=== PATIENT | female | born 1980 | race Caucasian/White ===

== ENCOUNTER → 2020-01-26 15:21 | Outpatient (BNVA) | payer OTHER, SELFPAY | PROVIDERS: Family Provider Nurse Practitioner Family; PCP Nurse Practitioner; Referring Provider Nurse Practitioner Family; Visit Provider Nurse Practitioner Family | DX: R68.89 Other general symptoms and signs (principal); Z20.828 Contact with and (suspected) exposure to other viral communicable diseases; B34.9 Viral infection, unspecified | CPT/HCPCS: 87400; 87635 ==

== ENCOUNTER → 2020-05-11 11:27 | Outpatient (BNVA) | payer OTHER, SELFPAY | PROVIDERS: Family Provider Nurse Practitioner Family; PCP Nurse Practitioner; Visit Provider Nurse Practitioner Family | DX: Z11.59 Encounter for screening for other viral diseases (principal) | CPT/HCPCS: 87635 ==

== ENCOUNTER → 2024-03-25 11:36 | Outpatient (BNVA) | payer OTHER, SELFPAY | PROVIDERS: Family Provider Nurse Practitioner Family; PCP Nurse Practitioner Family; Visit Provider Nurse Practitioner Family | DX: F31.9 Bipolar disorder, unspecified (principal); K21.9 Gastro-esophageal reflux disease without esophagitis; Z79.899 Other long term (current) drug therapy; Z13.6 Encounter for screening for cardiovascular disorders; Z12.31 Encounter for screening mammogram for malignant neoplasm of breast; Z30.41 Encounter for surveillance of contraceptive pills | CPT/HCPCS: 80053; 80061; 81003; 83036; 84439; 84443; 85025; 86376; 87077; 87086; 87184 ==

== ENCOUNTER → 2024-04-25 10:46 | Outpatient (BNVA) | payer OTHER, SELFPAY | PROVIDERS: Family Provider Nurse Practitioner Family; PCP Nurse Practitioner Family; Visit Provider Nurse Practitioner Family | DX: F31.9 Bipolar disorder, unspecified (principal); Z87.440 Personal history of urinary (tract) infections | CPT/HCPCS: 81003 ==

== ENCOUNTER → 2024-05-27 16:41 | Outpatient (BNVA) | payer SELFPAY | PROVIDERS: Family Provider Nurse Practitioner Family; PCP Nurse Practitioner Family; Visit Provider Nurse Practitioner Family | DX: Z12.4 Encounter for screening for malignant neoplasm of cervix (principal) | CPT/HCPCS: 88175 ==

== ENCOUNTER 2024-06-04 10:22 | Outpatient (CLI) | payer MEDICAID, SELFPAY ==
--- NOTE | 2024-06-04 10:40 | MM_ITS ---
WS: [id number] BILATERAL SCREENING DIGITAL TOMOSYNTHESIS MAMMOGRAM WITH CAD HISTORY: SCREENING COMPARISON: None available. Bilateral CC and MLO views with tomosynthesis and synthetic mammography submitted. Computer aided det ection analyzed. Breast composition: There are scattered areas of fibroglandular density. No suspicious masses, microc alcifications or architectural distortion. MM/[place] [id number] IMPRESSION: BI-RADS: 1-Negative FOLLOW UP: 1 Year Follow-up
== END 2024-06-04 10:23 | disposition home or self-care (01) ==
LOC: MOBLMAM 10:33
PROVIDERS: PCP Nurse Practitioner Family; Visit Provider Nurse Practitioner Family
DX: Z12.2 Encounter for screening for malignant neoplasm of respiratory organs (principal)
CPT/HCPCS: 77063; 77067; 87070; 87205

== ENCOUNTER → 2024-06-16 09:22 | Outpatient (BNVA) | payer MEDICAID, SELFPAY | PROVIDERS: PCP Nurse Practitioner Family; Visit Provider Nurse Practitioner Family | DX: G25.81 Restless legs syndrome (principal) | CPT/HCPCS: 82728; 83550 ==

== ENCOUNTER → 2024-07-07 11:38 | Outpatient (BNVA) | payer MEDICAID, SELFPAY | PROVIDERS: PCP Nurse Practitioner Family; Visit Provider Nurse Practitioner Family | DX: R35.0 Frequency of micturition (principal); R05.9 Cough, unspecified | CPT/HCPCS: 81015; 87426 ==

== ENCOUNTER → 2024-10-01 16:10 | Outpatient (BNVA) | payer MEDICAID, SELFPAY | PROVIDERS: PCP Nurse Practitioner Family; Visit Provider Nurse Practitioner Family | DX: R05.9 Cough, unspecified (principal) | CPT/HCPCS: 87400; 87426 ==

== ENCOUNTER 2024-10-21 04:28 | Emergency (ER) | payer MEDICAID, SELFPAY ==
[2024-10-21] VITALS (8 sets, daily range): BP systolic 117–124; BP diastolic 70–82; PULSE 93–106; RESP 14–18; TEMP 36.6; O2SAT 92–97; BMI 37.2
--- NOTE | 2024-10-21 04:37 | CTR_ITS ---
PROCEDURE INFORMATION: Exam: CT Head Without Contrast Exam date and time: 10/21/2024 5:55 AM Age: 44 years old Clinical indication: Other: Seizure TECHNIQUE: Imaging protocol: Computed tomography of the head without contrast. Radiation optimization: All CT scans at this facility use at least one of these dose optimization techniques: automated exposure control; mA and/or kV adjustment per patient size (includes targeted exams where dose is matched to clinical indication); or iterative reconstruction. COMPARISON: No relevant prior studies available. RADIATION DOSE METRICS: Total DLP (mGy-cm): 1229.03 FINDINGS: Brain: There is no evidence of acute parenchymal hemorrhage, extra-axial collection, or acute infarction. There is no mass effect, midline shift, or downward herniation. Cerebral ventricles: No ventriculomegaly. Paranasal sinuses: Visualized sinuses are unremarkable. No fluid levels. Mastoid air cells: Visualized mastoid air cells are well aerated. Bones: Unremarkable. No acute fracture. Soft tissues: Unremarkable. CT/CT head wo con* [id number] IMPRESSION: No acute intracranial abnormality.
--- NOTE | 2024-10-21 04:38 | ECG_ITS ---
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 Measurements Intervals [place] Rate: 97 P: 2 IA: 148 QRS: -25 QRSD: 87 T: 45 QT: 351 QTc: 448 Interpretive Statements SINUS RHYTHM BORDERLINE LEFT AXIS DEVIATION [QRS AXIS < -20] POSSIBLE RIGHT VENTRICULAR CONDUCTION DELAY [RSR (QR) IN V1/V2] No previous ECG available for comparison Electronically Signed On 10-21-2024 21:33:02 HOOK UP by Margarita Cabezas M.D. [email or web address]
--- NOTE | 2024-10-21 04:50 | XRR_ITS ---
PROCEDURE INFORMATION: Exam: XR Chest Exam date and time: 10/21/2024 5:37 AM Age: 44 years old Clinical indication: Shortness of breath; Additional info: Seizure TECHNIQUE: Imaging protocol: Radiologic exam of the chest. Views: 1 view. COMPARISON: No relevant prior studies available. FINDINGS: Lungs: Unremarkable. No consolidation. Pleural spaces: Unremarkable. No pleural effusion. No pneumothorax. Heart/Mediastinum: Unremarkable. No cardiomegaly. Bones/joints: Unremarkable. XR/XR chest 1V portable [id number] IMPRESSION: No acute findings.
[2024-10-21] MEDS: midazolam 1 mg/mL INJ 2 mL 2 MG (04:53)
[2024-10-21 04:57] LABS: Basophils % 0.2 %; Eosinophils % 0.1 %; Hematocrit 48.7 % (36-47); Lymphocytes # 1.2 10^3/uL (0.8-4.8); Lymphocytes % 8.1 %; Mean Corpuscular HGB Conc 33.5 g/dL (30-55); Mean Corpuscular Hemoglobin 30.6 pg (27-33); Mean Corpuscular Volume 91.4 fl (85-98); Mean Platelet Volume 9.1 fL (7.4-10.4); Monocytes # 0.8 10^3/uL (0.2-0.9); Monocytes % 5.6 %; Neutrophils # 12.75 10^3/uL (1.8-7.7); Neutrophils % 85.6 %; Nucleated Red Blood Cells % 0 %; Platelet Count 355 10^3/cmm (157-399); Red Blood Count 5.33 10^6/uL (3.85-5.65); Red Cell Distribution Width 12.9 % (12.1-15.1); White Blood Count 14.89 10^3/uL (3.29-11.43)
[2024-10-21 05:05] LABS: ABG PCO2 39.2 mmHg (35-45); ABG PH Result 7.19 (7.35-7.45); Arterial Blood Gas Hematocrit 51.4 % (37-47); Base Excess ABG -12.7 mmol/L (-2.0-2.0); Blood Gas Allen Test Pos; Blood Gas Sample Type Arterial; HCO3 ABG 14.9 mmol/L (22-26)
[2024-10-21 05:06] LABS: Blood Gas Operator Identificat ED; Blood Gas Sample Site Brachial, right
[2024-10-21 05:10] LABS: HCG, Serum Qual Negative (Negative)
[2024-10-21 05:20] LABS: Alanine Aminotransferase 19 U/L (0-33); Alkaline Phosphatase 91 U/L (35-105); Anion Gap 15.1 (5-19); Aspartate Amino Transferase 18 U/L (0-32); Blood Urea Nitrogen 11 mg/dL (6-20); Calcium 10.1 mg/dL (8.5-10.5); Carbon Dioxide 22 mmol/L (22-29); Chloride 104 mmol/L (98-107); Creatine Phosphokinase 177 U/L (26-192); Creatinine Clr Calc Pharmacy 92.8024; Globulin 3.6 g/dL (1.3-4.6); Glomerular Filtration Rate 68.7 mL/min (90-130); Glucose 112 mg/dL (65-115); Magnesium 2.4 mg/dL (1.7-2.3); Osmolality Calculated 284 mOsm/kg (285-295); Phosphorus 1.9 mg/dL (2.5-4.5); Potassium 4.1 mmol/L (3.5-5.1); Sodium 137 mmol/L (136-145); Total Bilirubin 0.3 mg/dL (0.15-1.2); Total Protein 7.6 g/dL (6.6-8.7)
[2024-10-21 05:21] LABS: Lactic Sepsis W/Reflex 1.5 mmol/L (0.5-2.2)
[2024-10-21 05:22] LABS: Alcohol Level < 10 mg/dL (0-10)
--- NOTE | 2024-10-21 05:33 | ED_ITS ---
Documented by User: Hamilton Kaiser Ronny, DO 10/21/24 21:20 HPI - Seizure 2 General: Chief Complaint: Seizure Stated Complaint: SEIZURE Time Seen by Provider: 10/21/24 04:30 History of Present Illness: HPI Narrative: 44-year-old female who evidently had 2 s eizures at home prior to arrival. On EMS arrival, she evidently had just had a seizure, but was awake and talking. She fell asleep on the way here. On my interview, when asked why she is here, she looks to the left, her eyes began to twitch, and she has a violent tonic clonic seizure lasting around 2 minutes. She then was minimally responsive, only to noxious stimuli on my interview. Related Data Home Medications Medication Instructions Recorded Confirmed norethindrone (contraceptive) 0.35 0.35 mg PO DAILY 10/21/24 10/21/24 mg tablet (Jencycla) trazodone 100 mg tablet 200 mg PO BEDTIME PRN insomnia 10/21/24 10/21/24 Previous Rx's Medication Instructions Recorded pantoprazole 40 mg tablet,delayed 40 mg PO DAILY 30 days #30 tabs 07/14/24 release duloxetine 30 mg capsule,delayed 30 mg PO DAILY #30 caps 08/14/24 release Allergies Allergy/AdvReac Type Severity Reaction Status Date / Time No Known Allergies Allergy Verified 10/21/24 04:34 PFS ED 2 PFSH: Medical History Sleep apnea Urinary tract infection Upper respiratory infection Restless leg Cervical cancer screening Psychiatric care History of UTI UTI (urinary tract infection), uncomplicated Uses oral contraception Breast cancer screening by mammogram Encounter for screening for cardiovascular disorders Medication management Bipolar depression Depression GERD (gastroesophageal reflux disease) Social History Smoking and tobacco/nicotine status: current every day tobacco/nicotine user Female Reproductive History: Date of last menstrual period: 09/21/24 Physical Exam 2 Const: EXAM LIMITATIONS: altered mental status GENERAL APPEARANCE: in distress (Actively seizing), combative and ill appearing HENMT: COMMON NORMALS: normocephalic, atraumatic and Normal external nose present HEAD & SCALP: normocephalic and atraumatic FACE & SINUS: normal facial exam; no ecchymosis and no edema NOSE: Normal external nose present and Normal nares present MOUTH: Normal oral and palatal mucosa present and tongue abnormal (Ecchymosis and abrasion) Eye: COMMON NORMALS: Equal, round and reactive pupils present PUPIL: Yes Equal, round and reactive pupils present Neck/C-Spine: GENERAL: Yes trachea midline Chest: CHEST: Yes Symmetrical chest wall rise Resp: COMMON NORMALS: clear to auscultation bilaterally AUSCULTATION: clear to auscultation bilaterally Cardio: COMMON NORMALS: regular rhythm RATE: tachycardic RHYTHM: regular rhythm GI: COMMON NORMALS: Soft to palpation PALPATION: Yes Soft to palpation and No Guarding due to palpation present (GI) Extremity: NARRATIVE EXTREMITY EXAM: Atraumatic Neuro: VIKRAM COMA SCALE: document GCS findings Cayce coma scale eye opening: Spontaneous Cayce coma scale verbal response: Words Vikram coma scale motor response: Abnormal flexion Cayce coma scale total score: 10 O THER: Patient began actively seizing at the beginning of my interview. She did not answer questions. Movements were tonic-clonic. Apnea was present. She did not lose her airway. Respirations recovered spontaneously. Seizure activity lasted approximately 2 minutes. Course 2 Vital Signs: Vital signs: Vital Signs Temperature 97.9 F 10/21/24 04:29 Pulse Rate 93 10/21/24 12:52 Respiratory Rate 14 10/21/24 06:30 Blood Pressure 117/77 10/21/24 12:52 Pulse Oximetry 94 10/21/24 12:52 Oxygen Delivery Me thod Room Air 10/21/24 04:29 MDM - Seizure MDM Narrative Medical decision making narrative: This patient had a violent tonic-clonic seizure on arrival. She required oxygen supplementation and airway suctioning. She bit her tongue. She was nearly obtunded for a period of minutes after her seizure. She was given 2 mg of Versed IV. After several minutes, she woke up very confused. She ripped out her IV access. She was violent trying to get out of bed, but could not control her movements. She was not responsive to verbal redirection, and had to be held down by staff. She was given intramuscular ketamine, 300 mg, with good result for sedation. She was then given Haldol and Ativan IV once IV access was reestablished. She was given 1500 mg of Keppra for the seizure. Laboratory is pending. CT and chest x-ray are pending. Her vitals at this point are quite stable. Her heart rate is 98, blood pressure 124/70, saturation 96% on 2 L with respirations of 15. Laboratory data shows a white blood cell count of 15. Hemoglobin 16. BMP is normal. Phosphorus is mildly low. Magnesium is not remarkable. Ethanol level is less than 10. Liver enzymes are normal. Blood gas shows a pH of 7.2 with a pCO2 of 39 and a pO2 of 101. Chest x-ray shows some streaky inflammation in the left upper lobe greater than right upper lobe, possible aspiration. No other infiltrates. No pneumothorax. CT of the head is pending. Urinalysis and urine drug screen are pending. She will have to be checked out at shift change. Lab Data 10/21/24 04:40 10/21/24 04:40 Labs: Radiology Impressions Head CT 10/21/24 04:37 IMPRESSION: No acute intracranial abnormality. Chest X-Ray 10/21/24 04:50 IMPRESSION: No acute findings. Laboratory Results WBC 14.89 10^3/uL (3.29-11.43) H 10/21/24 04:40 RBC 5.33 10^6/uL (3.85-5.65) 10/21/24 04:40 Hgb 16.30 g/dL (11.27-16.99) 10/21/24 04:40 Hct 48.7 % (36-47) H 10/21/24 04:40 MCV 91.4 fl (85-98) 10/21/24 04:40 MCH 30.6 pg (27-33) 10/21/24 04:40 MCHC 33.5 g/dL (30-55) 10/21/24 04:40 RDW 12.9 % (12.1-15.1) 10/21/24 04:40 Plt Count 355 10^3/cmm (157-399) 10/21/24 04:40 MPV 9.1 fL (7.4-10.4) 10/21/24 04:40 Neut % (Auto) 85.6 % 10/21/24 04:40 Lymph % (Auto) 8.1 % 10/21/24 04:40 [place] % (Auto) 5.6 % 10/21/24 04:40 Eos % (Auto) 0.1 % 10/21/24 04:40 Baso % (Auto) 0.2 % 10/21/24 04:40 Neut # (Auto) 12.75 10^3/uL (1.8-7.7) H 10/21/24 04:40 Lymph # (Auto) 1.2 10^3/uL (0.8-4.8) 10/21/24 04:40 [place] # (Auto) 0.8 10^3/uL (0.2-0.9) 10/21/24 04:40 Eos # (Auto) 0.0 10^3/uL (0.0-0.8) 10/21/24 04:40 Baso # (Auto) 0.0 10^3/uL (0.0-0.1) 10/21/24 04:40 Nucleated RBC % (auto) 0 % 10/21/24 04:40 Nucleated RBCs # 0.0 /100WBC 10/21/24 04:40 Specimen Type Arterial 10/21/24 04:55 Sample Site Brachial, right 10/21/24 04:55 ABG pH 7.19 (7.35-7.45) L 10/21/24 04:55 ABG pCO2 39.2 mmHg (35-45) 10/21/24 04:55 ABG pO2 101.0 mmHg (80.0-100.0) H 10/21/24 04:55 ABG HCO3 14.9 mmol/L (22-26) L 10/21/24 04:55 ABG Base Excess -12.7 mmol/L (-2.0-2.0) L 10/21/24 04:55 Bala Test Pos 10/21/24 04:55 Hematocrit 51.4 % (37-47) H 10/21/24 04:55 O2 Delivery Device None 10/21/24 04:55 Industrial Tractor Driver ID Ed 10/21/24 04:55 Sodium 137 mmol/L (136-145) 10/21/24 04:40 Potassium 4.1 mmol/L (3.5-5.1) 10/21/24 04:40 Chloride 104 mmol/L (98-107) 10/21/24 04:40 Carbon Dioxide 22 mmol/L (22-29) 10/21/24 04:40 Anion Gap 15.1 (5-19) 10/21/24 04:40 BUN 11 mg/dL (6-20) 10/21/24 04:40 Creatinine 0.9 mg/dL (0.5-0.9) 10/21/24 04:40 GFR Calculation 68.7 mL/min (90-130) L 10/21/24 04:40 Glucose 112 mg/dL (65-115) 10/21/24 04:40 Calculated Osmolality 284 mOsm/kg (285-295) L 10/21/24 04:40 Lactic Acid 1.5 mmol/L (0.5-2.2) 10/21/24 04:40 Calcium 10.1 mg/dL (8.5-10.5) 10/21/24 04:40 Phosphorus 1.9 mg/dL (2.5-4.5) L 10/21/24 04:40 Magnesium 2.4 mg/dL (1.7-2.3) H 10/21/24 04:40 Total Bilirubin 0.3 mg/dL (0.15-1.2) 10/21/24 04:40 AST 18 U/L (0-32) 10/21/24 04:40 ALT 19 U/L (0-33) 10/21/24 04:40 Alkaline Phosphatase 91 U/L (35-105) 10/21/24 04:40 Creatine Kinase 177 U/L (26-192) 10/21/24 04:40 Total Protein 7.6 g/dL (6.6-8.7) 10/21/24 04:40 Albumin 4.0 g/dL (3.5-5.2) 10/21/24 04:40 Globulin 3.6 g/dL (1.3-4.6) 10/21/24 04:40 HCG, Qual Negative (Negative) 10/21/24 04:40 Urine Color Yellow (Yellow) 10/21/24 05:31 Urine Appearance Clear (CLEAR) 10/21/24 05:31 Urine pH 5.0 (5-7) 10/21/24 05:31 Ur Specific [place] 1.015 (1.005-1.030) 10/21/24 05:31 Urine Protein 2+ (Negative) A 10/21/24 05:31 Urine Glucose (UA) Negative (Normal) 10/21/24 05:31 Urine Ketones Trace (Negative) 10/21/24 05:31 Urine Blood 2+ (Negative) A 10/21/24 05:31 Urine Nitrate Negative (Negative) 10/21/24 05:31 Urine Bilirubin Negative (Negative) 10/21/24 05:31 Urine Urobilinogen 1.0 mg/dL (Negative) 10/21/24 05:31 Ur Leukocyte Esterase Negative (Negative) 10/21/24 05:31 Urine RBC 0-2 /hpf (0-2) 10/21/24 05:31 Urine WBC 0-5 /hpf (0-5) 10/21/24 05:31 Ur Squamous Epith Cells 6-10 /hpf (0-5) 10/21/24 05:31 Amorphous Sediment 1+ /hpf 10/21/24 05:31 Urine Bacteria None seen /hpf (NONE) 10/21/24 05:31 Hyaline Casts 43.84 /lpf 10/21/24 05:31 Urine Mucus 1+ /hpf 10/21/24 05:31 Urine Opiates Screen Negative ng/mL (Negative) 10/21/24 05:31 Ur Barbiturates Screen Negative ng/mL (Negative) 10/21/24 05:31 Ur Phencyclidine Scrn Negative ng/mL (Negative) 10/21/24 05:31 Ur Amphetamines Screen Negative ng/mL (Negative) 10/21/24 05:31 U Benzodiazepines Scrn Negative ng/mL (Negative) 10/21/24 05:31 Urine Cocaine Screen Negative ng/mL (Negative) 10/21/24 05:31 U Marijuana (THC) Screen Positive ng/mL (Negative) H 10/21/24 05:31 Ethyl Alcohol < 10 mg/dL (0-10) 10/21/24 04:40 All radiology interpretation(s) finalized by discharge Discharge Plan Discharge Patient Disposition: Transfer to ED Clinical Impression: Generalized seizure Condition: Serious Prescriptions: No Action duloxetine 30 mg capsule,delayed release(DR/EC) 30 mg PO DAILY Qty: 30 2RF pantoprazole 40 mg tablet,delayed release (DR/EC) 40 mg PO DAILY 30 Days Qty: 30 2RF trazodone 100 mg tablet 200 mg PO BEDTIME PRN (Reason: insomnia) norethindrone (contraceptive) [Jencycla] 0.35 mg tablet 0.35 mg PO DAILY Referrals: AMAURY Gaviria, BUSINESS OFFICE REPRESENTATIVE [Primary Care Provider] - Stand Alone Forms: Work/School Release Sign Out Sign Out Data: Patient Sign Out occurred on 10/21/24 at 07:23. Patient's care was discussed, and care was transferred from Hamilton Jefferson DO to Jose Acevedo DO. Coding Level of Care Code ED Algebra Tutor for Chg Fwd Documented by User: Jose Acevedo DO 10/24/24 05:58 HPI - Seizure 2 General: Chief Complaint: Seizure Stated Complaint: SEIZURE Time Seen by Provider: 10/21/24 04:30 Related Data Home Medications Medication Instructions Recorded Confirmed norethindrone (contraceptive) 0.35 0.35 mg PO DAILY 10/21/24 10/21/24 mg tablet (Jencycla) trazodone 100 mg tablet 200 mg PO BEDTIME PRN insomnia 10/21/24 10/21/24 Previous Rx's Medication Instructions Recorded pantoprazole 40 mg tablet,delayed 40 mg PO DAILY 30 days #30 tabs 07/14/24 release duloxetine 30 mg capsule,delayed 30 mg PO DAILY #30 caps 08/14/24 release Allergies Allergy/AdvReac Type Severity Reaction Status Date / Time No Known Allergies Allergy Verified 10/21/24 04:34 PFSH ED 2 PFSH: Medical History Sleep apnea Urinary tract infection Upper respiratory infection Restless leg Cervical cancer screening Psychiatric care History of UTI UTI (urinary tract infection), uncomplicated Uses oral contraception Breast cancer screening by mammogram Encounter for screening for cardiovascular disorders Medication management Bipolar depression Depression GERD (gastroesophageal reflux disease) Social History Smoking and tobacco/nicotine status: current every day tobacco/nicotine user Physical Exam 2 Neuro: VIKRAM COMA SCALE: document GCS findings Cayce coma scale total score: 10 Course 2 Vital Signs: Vital signs: Vital Signs Temperature 97.9 F 10/21/24 04:29 Pulse Rate 93 10/21/24 12:52 Respiratory Rate 14 10/21/24 06:30 Blood Pressure 117/77 10/21/24 12:52 Pulse Oximetry 94 10/21/24 12:52 Oxygen Delivery Me thod Room Air 10/21/24 04:29 MDM - Seizure MDM Narrative Medical decision making narrative: This patient had a violent tonic-clonic seizure on arrival. She required oxygen supplementation and airway suctioning. She bit her tongue. She was nearly obtunded for a period of minutes after her seizure. She was given 2 mg of Versed IV. After several minutes, she woke up very confused. She ripped out her IV access. She was violent trying to get out of bed, but could not control her movements. She was not responsive to verbal redirection, and had to be held down by staff. She was given intramuscular ketamine, 300 mg, with good result for sedation. She was then given Haldol and Ativan IV once IV access was reestablished. She was given 1500 mg of Keppra for the seizure. Laboratory is pending. CT and chest x-ray are pending. Her vitals at this point are quite stable. Her heart rate is 98, blood pressure 124/70, saturation 96% on 2 L with respirations of 15. Laboratory data shows a white blood cell count of 15. Hemoglobin 16. BMP is normal. Phosphorus is mildly low. Magnesium is not remarkable. Ethanol level is less than 10. Liver enzymes are normal. Blood gas shows a pH of 7.2 with a pCO2 of 39 and a pO2 of 101. Chest x-ray shows some streaky inflammation in the left upper lobe greater than right upper lobe, possible aspiration. No other infiltrates. No pneumothorax. CT of the head is pending. Urinalysis and urine drug screen are pending. She will have to be checked out at shift change. Care assumed at change of shift. Patient had at least 4-5 seizures per no one witnessed by Dr. Jefferson. She is still postictal. Discussed with neurology at [facility] in [facility] they will accept patient on transfer to hospitalist service neurology to consult. Medical Records Attestation: I reviewed the patient's medical records. Lab Data Attestation: I reviewed the patient's lab results. 10/21/24 04:40 10/21/24 04:40 Labs: Radiology Impressions Head CT 10/21/24 04:37 IMPRESSION: No acute intracranial abnormality. Chest X-Ray 10/21/24 04:50 IMPRESSION: No acute findings. Laboratory Results WBC 14.89 10^3/uL (3.29-11.43) H 10/21/24 04:40 RBC 5.33 10^6/uL (3.85-5.65) 10/21/24 04:40 Hgb 16.30 g/dL (11.27-16.99) 10/21/24 04:40 Hct 48.7 % (36-47) H 10/21/24 04:40 MCV 91.4 fl (85-98) 10/21/24 04:40 MCH 30.6 pg (27-33) 10/21/24 04:40 MCHC 33.5 g/dL (30-55) 10/21/24 04:40 RDW 12.9 % (12.1-15.1) 10/21/24 04:40 Plt Count 355 10^3/cmm (157-399) 10/21/24 04:40 MPV 9.1 fL (7.4-10.4) 10/21/24 04:40 Neut % (Auto) 85.6 % 10/21/24 04:40 Lymph % (Auto) 8.1 % 10/21/24 04:40 [place] % (Auto) 5.6 % 10/21/24 04:40 Eos % (Auto) 0.1 % 10/21/24 04:40 Baso % (Auto) 0.2 % 10/21/24 04:40 Neut # (Auto) 12.75 10^3/uL (1.8-7.7) H 10/21/24 04:40 Lymph # (Auto) 1.2 10^3/uL (0.8-4.8) 10/21/24 04:40 [place] # (Auto) 0.8 10^3/uL (0.2-0.9) 10/21/24 04:40 Eos # (Auto) 0.0 10^3/uL (0.0-0.8) 10/21/24 04:40 Baso # (Auto) 0.0 10^3/uL (0.0-0.1) 10/21/24 04:40 Nucleated RBC % (auto) 0 % 10/21/24 04:40 Nucleated RBCs # 0.0 /100WBC 10/21/24 04:40 Specimen Type Arterial 10/21/24 04:55 Sample Site Brachial, right 10/21/24 04:55 ABG pH 7.19 (7.35-7.45) L 10/21/24 04:55 ABG pCO2 39.2 mmHg (35-45) 10/21/24 04:55 ABG pO2 101.0 mmHg (80.0-100.0) H 10/21/24 04:55 ABG HCO3 14.9 mmol/L (22-26) L 10/21/24 04:55 ABG Base Excess -12.7 mmol/L (-2.0-2.0) L 10/21/24 04:55 Bala Test Pos 10/21/24 04:55 Hematocrit 51.4 % (37-47) H 10/21/24 04:55 O2 Delivery Device None 10/21/24 04:55 Industrial Tractor Driver ID Ed 10/21/24 04:55 Sodium 137 mmol/L (136-145) 10/21/24 04:40 Potassium 4.1 mmol/L (3.5-5.1) 10/21/24 04:40 Chloride 104 mmol/L (98-107) 10/21/24 04:40 Carbon Dioxide 22 mmol/L (22-29) 10/21/24 04:40 Anion Gap 15.1 (5-19) 10/21/24 04:40 BUN 11 mg/dL (6-20) 10/21/24 04:40 Creatinine 0.9 mg/dL (0.5-0.9) 10/21/24 04:40 GFR Calculation 68.7 mL/min (90-130) L 10/21/24 04:40 Glucose 112 mg/dL (65-115) 10/21/24 04:40 Calculated Osmolality 284 mOsm/kg (285-295) L 10/21/24 04:40 Lactic Acid 1.5 mmol/L (0.5-2.2) 10/21/24 04:40 Calcium 10.1 mg/dL (8.5-10.5) 10/21/24 04:40 Phosphorus 1.9 mg/dL (2.5-4.5) L 10/21/24 04:40 Magnesium 2.4 mg/dL (1.7-2.3) H 10/21/24 04:40 Total Bilirubin 0.3 mg/dL (0.15-1.2) 10/21/24 04:40 AST 18 U/L (0-32) 10/21/24 04:40 ALT 19 U/L (0-33) 10/21/24 04:40 Alkaline Phosphatase 91 U/L (35-105) 10/21/24 04:40 Creatine Kinase 177 U/L (26-192) 10/21/24 04:40 Total Protein 7.6 g/dL (6.6-8.7) 10/21/24 04:40 Albumin 4.0 g/dL (3.5-5.2) 10/21/24 04:40 Globulin 3.6 g/dL (1.3-4.6) 10/21/24 04:40 HCG, Qual Negative (Negative) 10/21/24 04:40 Urine Color Yellow (Yellow) 10/21/24 05:31 Urine Appearance Clear (CLEAR) 10/21/24 05:31 Urine pH 5.0 (5-7) 10/21/24 05:31 Ur Specific [place] 1.015 (1.005-1.030) 10/21/24 05:31 Urine Protein 2+ (Negative) A 10/21/24 05:31 Urine Glucose (UA) Negative (Normal) 10/21/24 05:31 Urine Ketones Trace (Negative) 10/21/24 05:31 Urine Blood 2+ (Negative) A 10/21/24 05:31 Urine Nitrate Negative (Negative) 10/21/24 05:31 Urine Bilirubin Negative (Negative) 10/21/24 05:31 Urine Urobilinogen 1.0 mg/dL (Negative) 10/21/24 05:31 Ur Leukocyte Esterase Negative (Negative) 10/21/24 05:31 Urine RBC 0-2 /hpf (0-2) 10/21/24 05:31 Urine WBC 0-5 /hpf (0-5) 10/21/24 05:31 Ur Squamous Epith Cells 6-10 /hpf (0-5) 10/21/24 05:31 Amorphous Sediment 1+ /hpf 10/21/24 05:31 Urine Bacteria None seen /hpf (NONE) 10/21/24 05:31 Hyaline Casts 43.84 /lpf 10/21/24 05:31 Urine Mucus 1+ /hpf 10/21/24 05:31 Urine Opiates Screen Negative ng/mL (Negative) 10/21/24 05:31 Ur Barbiturates Screen Negative ng/mL (Negative) 10/21/24 05:31 Ur Phencyclidine Scrn Negative ng/mL (Negative) 10/21/24 05:31 Ur Amphetamines Screen Negative ng/mL (Negative) 10/21/24 05:31 U Benzodiazepines Scrn Negative ng/mL (Negative) 10/21/24 05:31 Urine Cocaine Screen Negative ng/mL (Negative) 10/21/24 05:31 U Marijuana (THC) Screen Positive ng/mL (Negative) H 10/21/24 05:31 Ethyl Alcohol < 10 mg/dL (0-10) 10/21/24 04:40 Discharge Plan Discharge Patient Disposition: Transfer to ED Clinical Impression: Generalized seizure Condition: Serious Prescriptions: No Action duloxetine 30 mg capsule,delayed release(DR/EC) 30 mg PO DAILY Qty: 30 2RF pantoprazole 40 mg tablet,delayed release (DR/EC) 40 mg PO DAILY 30 Days Qty: 30 2RF trazodone 100 mg tablet 200 mg PO BEDTIME PRN (Reason: insomnia) norethindrone (contraceptive) [Jencycla] 0.35 mg tablet 0.35 mg PO DAILY Referrals: AMAURY Gaviria, BUSINESS OFFICE REPRESENTATIVE [Primary Care Provider] - Stand Alone Forms: Work/School Release Sign Out Sign Out Data: Patient Sign Out occurred on 10/21/24 at 07:23. Patient's care was discussed, and care was transferred from Hamilton Jefferson DO to Jose Acevedo DO. Coding Level of Care Code ED Algebra Tutor for Nerissa De Los Santos
[2024-10-21] MEDS: levETIRAcetam 1,500 MG/100 ML PREMIX 400 MG IV (05:43)
[2024-10-21] MEDS: ketamine 100 mg/mL Inj 5 mL 500 MG (05:43)
[2024-10-21] MEDS: LORazepam 2 mg/mL INJ 1 mL (05:44)
[2024-10-21] MEDS: haloperidol inj 5 mg/mL INJ 1 mL (05:44)
[2024-10-21 05:50] LABS: Bilirubin Urine Negative (Negative); Blood Urine 2+ (Negative); Glucose Urine UA Negative (Normal); Ketones Urine Trace (Negative); Leukocyte Esterase Urine Negative (Negative); Nitrate Urine Negative (Negative); Protein Urine 2+ (Negative); Specific Gravity, Urine 1.015 (1.005-1.030); Urine Appearance Clear (CLEAR); Urine Color Yellow (Yellow)
[2024-10-21 05:55] LABS: Add Urine Microscopic? YES; Bacteria Urine None Seen /hpf; Hyaline Casts Urine 43.84 /lpf; RBC Urine 0-2 /hpf (0-2); WBC Urine 0-5 /hpf (0-5)
[2024-10-21 05:59] LABS: Amphetamines Screen Urine Negative (Negative); Barbiturates Screen Urine Negative (Negative); Benzodiazepines Screen Urine Negative (Negative); Cocaine Screen Urine Negative (Negative); Opiate Screen Urine Negative (Negative); PCP Screen Urine Negative (Negative); THC Screen Urine Positive (Negative)
[2024-10-21 06:20] LABS: UA Slide Review UA Slide Review Perf
[2024-10-21 06:21] LABS: Add Urine Culture? No; Amorphous Sediment Urine 1+ /hpf; Mucus Urine 1+ /hpf
--- NOTE | 2024-10-21 06:28 | PC.NURSE ---
Patient had a seizure during the doctors assessment. RN gave 2mg of versed per doctors verbal order. Patient became combative. Security, 2 nurses, and the doctor had to assist holding her down for her safety. Dr gave verbal ordered for 300mg of ketamine. Patient then became more restless and puller her IV out and started fighting staff. DR ordered 2mg of ativan and 5 mg of halodol. The housekeeping/laundry supervisor went to [facility] to pull the medication. After administering medication patient then fell asleep. pt was put on monitor and oxygen. Nurse went to get family and bring them to bedside.
--- NOTE | 2024-10-21 07:06 | PC.PHAR ---
Pts' provided rx bottles for current medications. Last taken was yesterday, nothing today.
== END 2024-10-21 12:53 ==
PROVIDERS: Emergency Medicine; Emergency Provider Family Medicine; PCP Nurse Practitioner Family
DX: G40.89 Other seizures (principal); Z72.0 Tobacco use
CPT/HCPCS: 36415; 36600; 51701; 70450; 71045; 80053; 80306; 80307; 81001; 82550; 82803; 83605; 83735; 84100; 84703; 85025; 93005; 96374; 99285; J1630; J1953; J2060; J2250; J3490

== ENCOUNTER 2024-11-27 13:05 | Outpatient (CLI) | payer MEDICAID, SELFPAY | END 2024-11-27 13:06 | disposition home or self-care (01) | LOC: SLEEP 13:06 | PROVIDERS: PCP Nurse Practitioner Family; Visit Provider Nurse Practitioner Family | DX: G47.33 Obstructive sleep apnea (adult) (pediatric) (principal) | CPT/HCPCS: G0399 ==

== ENCOUNTER 2025-07-01 11:56 | Outpatient (CLI) | payer MEDICAID, SELFPAY ==
--- NOTE | 2025-07-01 12:00 | MM_ITS ---
WS: [id number] BILATERAL 3D TOMOSYNTHESIS DIGITAL SCREENING MAMMOGRAPHY WITH CAD CLINICAL INFORMATION: SCREENING HISTORY: Screening mammogram. No current complaints. COMPARISON: 2023 TECHNIQUE: Bilateral CC and MLO views. FINDINGS: Scattered fibroglandular densities bilaterally. No suspicious focal mass, asymmetry, calcifications, or architectural distortion. No evidence of malignancy. A few incidental punctate calcifications. MM/MM scr tomosynthesis [id number] IMPRESSION: DENSITY: There are scattered areas of fibroglandular density. BI-RADS: 2 - Benign. FOLLOW UP: 1 Year Follow-up Recommend return to annual screening mammography.
== END 2025-07-01 11:57 | disposition home or self-care (01) ==
LOC: MOBLMAM 11:57
PROVIDERS: PCP Nurse Practitioner Family; Visit Provider Nurse Practitioner Family
DX: Z12.31 Encounter for screening mammogram for malignant neoplasm of breast (principal)
CPT/HCPCS: 77063; 77067